=== PATIENT | male | born 1945 | race Two or more races ===

== ENCOUNTER 2025-03-18 11:39 | Emergency (ER) | payer MEDICAID, OTHER, SELFPAY ==
[2025-03-18 11:56] VITALS: PULSE 82; RESP 18; O2SAT 98; BMI 29.4
[2025-03-18 12:02] VITALS: BP 168/75; PULSE 62; RESP 18; TEMP 36.9; O2SAT 96
--- NOTE | 2025-03-18 12:06 | PC.NURSE ---
Patient BIBA due to bleeding from port on RUE that was accessed from HD earlier today. Tatyana FIELD EXAMINER at bedside assessing HD port, slow bleeding noted, pressure dressing placed. POC updated.
--- NOTE | 2025-03-18 12:11 | PD.EDADULT ---
ED General RME/HPI General Chief complaint: General Adult/Misc Complain Stated complaint: BLEEDING Time Seen by Provider: 03/18/25 12:10 Arrival date/time: 03/18/25 11:39 RME / HPI RME / HPI narrative: 79-year-old male patient came in for evaluation regarding bleeding from the AV fistula. Patient had hemodialysis today, to try to use the right AV fistula, and since then has been bleeding. Severity mild. Patient have a left chest dialysis cath that they used for hemodialysis today patient completed the hemodialysis today. Denies any other complaints. Related Data Home Medications ?Medication ?Instructions ?Recorded ?Confirmed clopidogrel 75 mg tablet (Plavix) 75 mg PO QDAY 09/03/19 08/04/22 losartan 50 mg tablet 50 mg PO QDAY 09/03/19 08/04/22 simvastatin 40 mg tablet 40 mg PO QPM 09/03/19 08/04/22 tamsulosin 0.4 mg capsule 0.8 mg PO HS 09/03/19 08/04/22 aspirin 325 mg tablet 325 mg PO QDAY 09/08/19 08/04/22 finasteride 5 mg tablet 5 mg PO QDAY 09/08/19 08/04/22 hydralazine 50 mg tablet 50 mg PO TID 08/04/22 08/04/22 Allergies Allergy/AdvReac Type Severity Reaction Status Date / Time No Known Allergies Allergy Verified 08/03/22 20:52 Review of Systems Review of Systems Narrative Review of Systems: Review of system reviewed and within normal limits except mentioned in HPI ED Exam Narrative Physical exam: VITAL SIGNS: Reviewed. GENERAL APPEARANCE: Alert and interactive, follows commands, no acute distress, HEAD AND FACE: Non-traumatic. ENT: PERRL, pink conjunctivitis, eyelid no trauma, Mucous membrane moist. NECK: Supple, nontender, no nuchal rigidity. CHEST: No tenderness, no crepitus, no paradoxical movement, no retractions. LUNGS: Clear, well ventilated, symmetric, no rales, no wheezing, no ronchi, no stridor, good breath sounds bilaterally. HEART: Regular rate, regular rhythm, no murmur, no gallops. ABDOMEN: Soft, positive bowel sounds, nondistended, no guarding, nontender, no rebound, no masses, RECTAL: Deferred. GENITAL: Deferred. NEUROLOGICAL: Gross motor function intact sensory function intact, Appropriate for age. MUSCULOSKELETAL: low back nontender, full range of motion. EXTREMITIES: Right arm AV fistula with minimal bleeding, full range of motion. Distal neurovascular status intact pulses are +2 radial and ulnar SKIN: Color pink, dry, no rash, no lacerations, no abrasions, no contusions. LYMPHATICS: Deferred. Course Quality Measures none Orders Category Date Time Status CBC [CBC] Stat Lab 03/18/25 12:55 Completed CMP [Comprehensive Metabolic Panel] Stat Lab 03/18/25 12:55 Completed PT [Prothrombin Time with INR] Stat Lab 03/18/25 12:55 Completed PTT [Partial Thromboplastin Time] Stat Lab 03/18/25 12:55 Completed Vital Signs Vital signs: Vital Signs Temperature 98.5 F 03/18/25 12:02 Pulse Rate 62 03/18/25 12:02 Respiratory Rate 18 03/18/25 12:02 Blood Pressure 168/75 H 03/18/25 12:02 Pulse Oximetry (%) 96 03/18/25 12:02 Oxygen Delivery Method Room Air 03/18/25 12:02 Discharge Plan Plan Patient Disposition: HOME (Self Care) Discharge Disposition comment: Stable Prescriptions/Referrals Prescriptions/Med Rec: No Action losartan 50 mg Tablet 50 mg PO QDAY clopidogrel [Plavix] 75 mg Tablet 75 mg PO QDAY simvastatin 40 mg Tablet 40 mg PO QPM tamsulosin 0.4 mg Capsule 0.8 mg PO HS finasteride 5 mg Tablet 5 mg PO QDAY aspirin 325 mg Tablet 325 mg PO QDAY hydralazine 50 mg Tablet 50 mg PO TID Referrals: No Primary/Family,Physician [Primary Care Provider] - In 1 week Problem List Clinical Impression: Hemorrhage of arteriovenous fistula Patient/Caregiver Discharge Instructions Discharge Activity: activity as tolerated Education Materials: Kidney Failure Healthcare Team Additional Instructions: Thank you for the opportunity for serving you today. You are stable for discharged . You are advised to: Follow-up with your PCP in 1 to 2 days Return to ED for worsening of symptoms Print Language: Micronesian Stand Alone Forms: Kayleigh Award Info., Patient Portal Info Letter MDM Narrative [facility] hospital course: 79-year-old male patient came in for evaluation regarding bleeding from the AV fistula. Patient had hemodialysis today, to try to use the right AV fistula, and since then has been bleeding. Severity mild. Patient have a left chest dialysis cath that they used for hemodialysis today patient completed the hemodialysis today. Denies any other complaints. Patient's workup today all came back unremarkable except for hemoglobin of 10.8 hematocrit of 31.5. I did compression dressing for 30 minutes more or less and prior to discharge changed to dressing and no more bleeding noted Diagnosis Differential diagnosis: Bleeding AV fistula, anemia, Most likely dx, and/or detailed dx discussion: Bleeding AV fistula, anemia, ESRD
--- NOTE | 2025-03-18 12:53 | PC.NURSE ---
Bleeding noted posterior of pressure dressing BETH Joe notified.
[2025-03-18 13:04] LABS: Basophils # (Auto) 0.1 Thou/mm3 (0.0-0.2); Basophils % (Auto) 1 % (0-2.5); Eosinophils # (Auto) 0.7 Thou/mm3 (0.0-0.5); Eosinophils % (Auto) 9 % (0-10); Hematocrit 31.5 % (41.0-53.0); Hemoglobin 10.8 g/dL (13.5-16.0); Immature Granulocytes % (Auto) 0 % (0-0); Immature Granulocytes Auto 0.03 Thou/mm3 (0.00-0.00); Lymphocytes % (Auto) 13 % (10-50); Mean Corpuscular HGB Conc 34.3 g/dl (31.0-37.0); Mean Corpuscular Hemoglobin 33.2 pg (25.0-35.0); Mean Corpuscular Volume 97 fL (80-100); Monocytes # (Auto) 0.8 Thou/mm3 (0.0-0.8); Monocytes % (Auto) 10 % (0-12); Neutrophils # (Auto) 5.3 Thou/mm3 (1.8-7.7); Neutrophils % (Auto) 67 % (37-80); Nucleated Red Blood Cell % 0 /100 WBC (0); Platelet Count 173 Thou/mm3 (140-440); RDW Standard Deviation 44.3 fL (35.1-43.9); Red Blood Count 3.25 Miln/mm3 (4.50-5.90); White Blood Count 7.9 Thou/mm3 (3.8-10.6)
[2025-03-18 13:21] LABS: INR 1.1 (0.9-1.3); Partial Thromboplastin Time 31.7 Seconds (22.0-36.0); Prothrombin Time 11.5 Seconds (9.0-12.2)
[2025-03-18 13:37] LABS: Alanine Aminotransferase 8 U/L (10-49); Albumin, Serum 3.7 gm/dL (3.4-4.8); Albumin/Globulin Ratio 1.5 (1.2-2.2); Alkaline Phosphatase 65 U/L (46-116); Anion Gap 8 (7-16); Aspartate Amino Transferase 21 U/L (0-34); BUN/Creatinine Ratio 4 Ratio (12-20); Bilirubin,Total 0.4 mg/dL (0.3-1.2); Blood Urea Nitrogen 15 mg/dL (9-23); Calcium 8.3 mg/dL (8.3-10.6); Calcium (Corrected) 8.5 mg/dL (8.5-10.1); Carbon Dioxide 29.5 mMol/L (20.0-31.0); Chloride 101 mMol/L (98-107); Creatinine (Component) 3.5 mg/dL (0.6-1.3); Estimated Creatinine Clearance 17.3 mL/min (>60); Globulin 2.4 gm/dL (2.3-3.5); Glucose 155 mg/dL (74-106); Osmolality,Calculated 279 (275-295); Potassium 4.4 mMol/L (3.4-5.1); Sodium 138 mMol/L (136-145); Total Protein 6.1 gm/dL (5.7-8.2); eGFR 17 See Note
[2025-03-18 15:10] VITALS: BP 140/59; PULSE 57; RESP 20; TEMP 36.5; O2SAT 98
== END 2025-03-18 15:18 | disposition home or self-care (01) ==
PROVIDERS: Nurse Practitioner Family; Emergency Provider Emergency Medicine
DX: T82.838A Hemorrhage due to vascular prosthetic devices, implants and grafts, initial encounter (principal); Z99.2 Dependence on renal dialysis
CPT/HCPCS: 36415; 80053; 85025; 85610; 85730; 99283

== ENCOUNTER → 2025-05-13 | Outpatient (CLI) | payer MEDICARE, MEDICAID, SELFPAY ==
[2025-05-13 09:09] LABS: Collection Type, Urine Clean Catch
[2025-05-13 09:33] LABS: Basophils # (Auto) 0.1 Thou/mm3 (0.0-0.2); Basophils % (Auto) 1 % (0-2.5); Eosinophils # (Auto) 0.9 Thou/mm3 (0.0-0.5); Eosinophils % (Auto) 8 % (0-10); Hematocrit 39.4 % (41.0-53.0); Hemoglobin 12.4 g/dL (13.5-16.0); Immature Granulocytes Auto 0.05 Thou/mm3 (0.00-0.00); Lymphocytes # (Auto) 1.7 Thou/mm3 (1.0-4.8); Lymphocytes % (Auto) 15 % (10-50); Mean Corpuscular HGB Conc 31.5 g/dl (31.0-37.0); Mean Corpuscular Hemoglobin 32.6 pg (25.0-35.0); Mean Corpuscular Volume 104 fL (80-100); Monocytes # (Auto) 1.0 Thou/mm3 (0.0-0.8); Monocytes % (Auto) 9 % (0-12); Neutrophils # (Auto) 7.4 Thou/mm3 (1.8-7.7); Neutrophils % (Auto) 66 % (37-80); Nucleated Red Blood Cell # 0.00 Thou/mm3 (0.00-0.00); Nucleated Red Blood Cell % 0 /100 WBC (0); Platelet Count 204 Thou/mm3 (140-440); RDW Standard Deviation 52.4 fL (35.1-43.9); Red Blood Count 3.80 Miln/mm3 (4.50-5.90); White Blood Count 11.1 Thou/mm3 (3.8-10.6)
[2025-05-13 09:43] LABS: Bacteria,Urine 2+; Bilirubin,Urine Negative (Negative); Blood,Urine 1+ (Negative); Color,Urine Yellow (Lt Yel-Yel); Glucose, Urine Negative (Negative); Ketones,Urine Negative (Negative); Leukocyte Esterase,Urine Positive (Negative); Nitrite,Urine Negative (Negative); PH,Urine 6.5 (5.0-7.0); Protein,Urine 1+ (Neg - Trace); RBC,Urine 8 /hpf (0-3); Specific Gravity,Urine 1.015 (1.001-1.035); Squamous Epithelial Cell,Urine 1 /hpf (0-5); Urobilinogen,Urine Negative mg/dL (0.0-1.0); WBC,Urine 992 /hpf (0-5)
[2025-05-13 09:47] LABS: Glucose Estimated Average 105 mg/dL (80-131); Hemoglobin A1C 5.3 % Hgb (4.8-6.0)
[2025-05-13 09:55] LABS: Clarity,Urine Hazy (Clear/Hazy); Culture Indicated,Urine Yes
[2025-05-13 10:03] LABS: Alanine Aminotransferase 8 U/L (10-49); Albumin, Serum 4.2 gm/dL (3.4-4.8); Alkaline Phosphatase 69 U/L (46-116); Anion Gap 9 (7-16); Aspartate Amino Transferase 25 U/L (0-34); BUN/Creatinine Ratio 5 Ratio (12-20); Bilirubin,Direct 0.2 mg/dL (0.0-0.3); Bilirubin,Total 0.5 mg/dL (0.3-1.2); Blood Urea Nitrogen 15 mg/dL (9-23); Calcium 9.2 mg/dL (8.3-10.6); Carbon Dioxide 29.7 mMol/L (20.0-31.0); Cardiac Risk Estimate 2.8 RATIO (4.0-6.7); Chloride 101 mMol/L (98-107); Cholesterol 121 mg/dL (132-200); Creatinine (Component) 2.9 mg/dL (0.6-1.3); Free T4 (Free Thyroxine) 1.23 ng/dL (0.89-1.76); Glucose 105 mg/dL (74-106); HDL Cholesterol 43 mg/dL (40-60); LDL Cholesterol,Calculated 61 mg/dL (0-130); Osmolality,Calculated 280 (275-295); Potassium 4.2 mMol/L (3.4-5.1); Sodium 140 mMol/L (136-145); Thyroid Stimulating Hormone 2.41 uIU/mL (0.55-4.78); Total Protein 7.0 gm/dL (5.7-8.2); Triglycerides 84 mg/dL (30-150); eGFR 21 See Note
== END | disposition home or self-care (01) ==
LOC: COPL 08:29
PROVIDERS: PCP Family Medicine; Referring Provider Family Medicine; Visit Provider Internal Medicine Cardiovascular Disease
DX: I10 Essential (primary) hypertension (principal); E78.5 Hyperlipidemia, unspecified; E13.9 Other specified diabetes mellitus without complications; I25.118 Atherosclerotic heart disease of native coronary artery with other forms of angina pectoris; R31.9 Hematuria, unspecified; I25.10 Atherosclerotic heart disease of native coronary artery without angina pectoris
CPT/HCPCS: 36415; 80048; 80061; 80076; 81001; 83036; 84439; 84443; 85025; 87077; 87086; 87186